=== PATIENT | male | born 1960 | race Caucasian/White ===

== ENCOUNTER 2021-08-03 21:45 | Inpatient (IN) | payer OTHER ==
[~2021-08-03] VITALS: Ht 162.6 cm; Wt 111.1 kg
[2021-08-03 21:50] VITALS: BP 146/89
--- NOTE | 2021-08-03 21:53 | NUR ---
TO LOBBY A/W BED AMBULATORY
[2021-08-03] MEDS ORDERED: ASPIRIN 325 MG TAB PO ONE (22:45)
[2021-08-03] MEDS ORDERED: NITROGLYCERIN 0.4 MG TAB SL ONE (22:45)
--- NOTE | 2021-08-03 22:50 | NUR ---
MEDICATED PER ERMDS ORDER, TOLERATED WELL.
[2021-08-03 23:11] LABS: BASOPHILS # (AUTO) 0.1 K/uL (0.00-0.22); BASOPHILS % (AUTO) 0.7 % (0.0-2.0); EOSINOPHILS # (AUTO) 0.1 K/uL (0-0.4); HEMATOCRIT 36.7 % (36-52); HEMOGLOBIN 12.3 g/dL (12.0-18.0); LYMPHOCYTES # (AUTO) 2.3 K/uL (2.0-11.5); LYMPHOCYTES % (AUTO) 23.9 % (20.5-51.1); MEAN CORPUSCULAR HEMOGLOBIN 29 pg (27-31); MEAN CORPUSCULAR HGB CONC 34 g/dL (33-37); MONOCYTES # (AUTO) 0.7 K/uL (0.8-1.0); NEUTROPHILS # (AUTO) 6.5 K/uL (1.8-7.7); NEUTROPHILS % (AUTO) 67.4 % (42.2-75.2); PLATELET COUNT (AUTO) 249 K/uL (140-450); RED BLOOD CELL COUNT(AUTO) 4.27 MIL/uL (4.20-6.10); RED CELL DISTRIBUTION WIDTH 15.3 % (11.6-13.7); WHITE BLOOD COUNT (AUTO) 9.7 K/uL (4.8-10.8)
[2021-08-03 23:26] LABS: ALBUMIN 3.1 g/dL (3.4-5.0); ANION GAP 9.6 (8-16); CARBON DIOXIDE 30.1 mmol/L (21-32); CREATININE 0.9 mg/dL (0.6-1.3); POTASSIUM 3.7 mmol/L (3.5-5.1); TOTAL BILIRUBIN 0.2 mg/dL (0.0-1.0)
--- NOTE | 2021-08-04 07:26 | NUR ---
Pt report given to Zuly SALGADO. Transfer of care at this time.
--- NOTE | 2021-08-04 07:36 | NUR ---
REPORT RECEIVED FROM DAMIAN GOOD. TRANSFER OF CARE RECEIVED
[2021-08-04] MEDS ORDERED: ZOLPIDEM 5 MG TAB PO PRN (08:20)
[2021-08-04] MEDS ORDERED: POTASSIUM CHLORIDE 10 MEQ TABER PO PRN (08:20)
[2021-08-04] MEDS: NACL 0.9% 1,000 ML IV SCH ×2 (08:20→18:32)
[2021-08-04] MEDS ORDERED: MORPHINE SULFATE 2 MG/ML SYR IVP PRN (08:20)
[2021-08-04] MEDS ORDERED: HYDROcodone/APAP 5/325 MG 1 TAB TAB PO PRN (08:20)
[2021-08-04] MEDS ORDERED: SODIUM PHOS / POTASSIUM PHOS 1 PKT PDR PO PRN (08:20)
[2021-08-04] MEDS ORDERED: DOCUSATE SODIUM 100 MG GELCAP PO PRN (08:20)
[2021-08-04] MEDS ORDERED: ONDANSETRON 4 MG/2 ML VIAL IVP PRN (08:20)
[2021-08-04] MEDS ORDERED: LORazepam 2 MG/ML VIAL IM/IVP PRN (08:20)
[2021-08-04] MEDS ORDERED: MAG SULF 2000 MG/WATER PREMIX 50 ML IV PRN (08:20)
--- NOTE | 2021-08-04 08:20 | NUR ---
RECEIVED REPORT FROM ED NURSE. PT IS ON THEIR WAY TO THE UNIT.
--- NOTE | 2021-08-04 08:30 | NUR ---
PT ON UNIT. PT HAS LAC 20G, IV IS PATENT AND INTACT. PT IS AMBULATORY ABLE TO MOVE FROM ED GURNEY TO [facility] INDEPENDENTLY. GAIT IS STEADY. PT DENIES PAIN AT THIS TIME. PT ON RA WITH NORMAL UNLABORED BREATHING. SKIN IS WARM, DRY, A ND INTACT. WILL CONTINUE TO MONITOR.
--- NOTE | 2021-08-04 08:30 | NUR ---
Patient will be admitted to care of DR. MERCADO. Admited to TELE. Will go to room 106A. Belongings list completed. Report to DAMIAN NGUYEN.
--- NOTE | 2021-08-04 08:35 | NUR ---
PATIENT HAS BEEN SCREENED AND CATEGORIZED LOW NUTRITION RISK. PATIENT WILL BE SEEN WITHIN 7 DAYS OF ADMISSION. 08/10/[address]
[2021-08-04 09:04] LABS: ALBUMIN 3.1 g/dL (3.4-5.0); ANION GAP 9.9 (8-16); CARBON DIOXIDE 30.3 mmol/L (21-32); CREATININE 0.9 mg/dL (0.6-1.3); POTASSIUM 4.2 mmol/L (3.5-5.1); TOTAL BILIRUBIN 0.2 mg/dL (0.0-1.0)
[2021-08-04 09:18] LABS: PHOSPHORUS 4.2 mg/dL (2.5-4.9)
[2021-08-04 09:19] LABS: CHOL/HDL RATIO 5.3 (1-4.5); FREE T4 (FREE THYROXINE) 0.78 ng/dL (0.76-1.46); THYROID STIMULATING HORMONE 4.02 uIU/mL (0.34-3.74)
--- NOTE | 2021-08-04 10:20 | NUR ---
PT CONDITION IS STABLE. PT IS ON THE PHONE WITH FAMILY, DENIES PAIN AT THIS TIME. WILL CONTINUE TO MONITOR.
--- NOTE | 2021-08-04 12:00 | NUR ---
PT CONDITION IS STABLE. PT IS AWAKE AND CURRENTLY WATCHING TELEVISION. PT IS ON IVF PER MD ORDER. IV IS PATENT AND INTACT. WILL CONTINUE TO MONITOR.
[2021-08-04] MEDS: FUROSEMIDE 40 MG TAB PO SCH ×2 (13:26→19:11)
[2021-08-04 14:00] VITALS: BP 166/102
[2021-08-04] MEDS ORDERED: REGADENOSON 0.4 MG/5 ML SYR IV SCH (14:15)
--- NOTE | 2021-08-04 14:30 | NUR ---
PT CONDITION IS STABLE. PT IS CURRENTLY SLEEPING. PT DOES NOT APPEAR TO BE IN PAIN OR DISTRESS. WILL CONTINUE TO MONITOR.
[2021-08-04 16:00] VITALS: BP 145/84
--- NOTE | 2021-08-04 16:15 | NUR ---
PT IS AWAKE AND ON THE PHONE WITH FAMILY. PT DOES NOT APPEAR TO BE IN PAIN OR DISTRESS. WILL CONTINUE TO MONITOR.
--- NOTE | 2021-08-04 18:45 | NUR ---
PT CONDITION IS STABLE. PT DENIES PAIN AT THIS TIME. BREATHING IS NORMAL AND UNLABORED. IVF IS RUNNING PER MD ORDER. SKIN IS WARM, DRY, AND INTACT.
--- NOTE | 2021-08-04 19:15 | NUR ---
GAVE CHANGE OF SHIFT REPORT TO NIGHT NURSE AT BEDSIDE FOR CONTINUITY OF CARE. DISCUSSED POC. PT CONDITION IS STABLE.
--- NOTE | 2021-08-04 19:30 | NUR ---
RECEIVED REPORT AT BEDSIDE.PT IS AWAKE,ALERT AND ORIENTED.RESP.UNLABORED IN RA.LUNGS CLEAR.TELE IS ON AND SHOWING SR W/INVERTED T.IVF INFUSING WELL.CALL LIGHT IN REACH.NO C/O PAIN AT THIS TIME.WILL CONT.MONITORING.
[2021-08-04 20:00] VITALS: BP 127/81
[2021-08-05] VITALS: BP 155/87
--- NOTE | 2021-08-05 | NUR ---
VS STABLE.HR IS SR.NO DISTRESS NOTED NOW.VCALL LIGHT WITHIN REACH.
[2021-08-05] MEDS: ACETAMINOPHEN 325 MG TAB PO PRN (03:22)
[2021-08-05 04:00] VITALS: BP 135/80
[2021-08-05] MEDS: NACL 0.9% 1,000 ML IV SCH ×2 (04:20→14:51)
--- NOTE | 2021-08-05 04:22 | NUR ---
HAD C/O ERNST.TYLENOL PO GIVEN EARLIER.NO C/O PAIN NOW.HE IS NPO FOR LEXICAN STRESS TEST THIS AM.HR IS SR.VS STABLE.
--- NOTE | 2021-08-05 06:19 | NUR ---
SLEEPING.NO DISTRESS NOTED AT PRESENT TIME.
[2021-08-05] MEDS ORDERED: REGADENOSON 0.4 MG/5 ML SYR IV SCH ×2 (07:00→08:50)
--- NOTE | 2021-08-05 07:20 | NUR ---
RECEIVED CHANGE OF SHIFT REPORT FROM NIGHT NURSE AT BEDSIDE FOR CONTINUITY OF CARE. PT CONDITION IS STABLE WITH IVF RUNNING PER MD ORDER. PT DENIES PAIN OR DISCOMFORT AT THIS TIME. SKIN IS WARM, DRY, AND INTACT. WILL CONTINUE TO MONITOR.
[2021-08-05 07:37] LABS: BASOPHILS # (AUTO) 0.1 K/uL (0.00-0.22); BASOPHILS % (AUTO) 0.6 % (0.0-2.0); EOSINOPHILS # (AUTO) 0.2 K/uL (0-0.4); EOSINOPHILS % (AUTO) 2.2 % (0.0-4.0); HEMATOCRIT 36.8 % (36-52); HEMOGLOBIN 12.5 g/dL (12.0-18.0); LYMPHOCYTES % (AUTO) 30.7 % (20.5-51.1); MEAN CORPUSCULAR HEMOGLOBIN 29 pg (27-31); MEAN CORPUSCULAR HGB CONC 34 g/dL (33-37); MEAN CORPUSCULAR VOLUME 85.9 fL (80-94); MONOCYTES # (AUTO) 0.7 K/uL (0.8-1.0); MONOCYTES % (AUTO) 7.1 % (1.7-9.3); NEUTROPHILS # (AUTO) 5.8 K/uL (1.8-7.7); NEUTROPHILS % (AUTO) 59.4 % (42.2-75.2); PLATELET COUNT (AUTO) 237 K/uL (140-450); RED BLOOD CELL COUNT(AUTO) 4.28 MIL/uL (4.20-6.10); RED CELL DISTRIBUTION WIDTH 15.8 % (11.6-13.7); WHITE BLOOD COUNT (AUTO) 9.7 K/uL (4.8-10.8)
--- NOTE | 2021-08-05 07:53 | NUR ---
RADIOLOGY AT BEDSIDE FOR IV MED INJECTION TO PREPARE FOR LEXISCAN.
[2021-08-05 08:00] VITALS: BP 141/80
[2021-08-05 08:36] LABS: ALBUMIN 3.2 g/dL (3.4-5.0); CARBON DIOXIDE 32.6 mmol/L (21-32); CREATININE 1.1 mg/dL (0.6-1.3); POTASSIUM 3.6 mmol/L (3.5-5.1); TOTAL BILIRUBIN 0.4 mg/dL (0.0-1.0)
[2021-08-05] MEDS: ATORVASTATIN 20 MG TAB PO SCH (08:42)
[2021-08-05] MEDS: FUROSEMIDE 40 MG TAB PO SCH (08:42)
--- NOTE | 2021-08-05 08:50 | NUR ---
RADIOLOGY PICKED UP PATIENT FOR STRESS TEST. PT IS OFF THE UNIT.
[2021-08-05 09:16] LABS: APPEARANCE,URINE CLEAR (CLEAR); BILIRUBIN,URINE NEGATIVE (NEGATIVE); BLOOD, URINE TRACE-I (NEGATIVE); COLOR,URINE YELLOW (YELLOW); LEUKOCYTE ESTERASE ,URINE NEGATIVE (NEGATIVE); NITRITE, URINE NEGATIVE (NEGATIVE); UGLUCOSE NEGATIVE (NEGATIVE)
[2021-08-05 09:41] LABS: BARBITURATE, URINE NEGATIVE ng/ml (NEG <=200); BENZODIAZEPINE, URINE NEGATIVE ng/mL (NEG <=200); CANNABINOID, URINE NEGATIVE ng/mL (NEG <=50); COCAINE, URINE NEGATIVE ng/mL (NEG <=300); PHENCYCLIDINE SCREEN,URINE NEGATIVE ng/mL (NEG <=25)
[2021-08-05 09:42] LABS: OPIATE, URINE NEGATIVE ng/mL (NEG <=2000)
[2021-08-05 09:54] LABS: RBC,URINE 0-5 /HPF (0-5); WBC,URINE 0-5 /HPF (0-5)
--- NOTE | 2021-08-05 09:58 | NUR ---
RECEIVED CALL FROM [facility] (RADIOGRAPHY TECH). PT FINISHED STRESS TEST PORTION OF TEST. REPORTS PT BP IS HIGH DR. GOODSON WILL INPUT ORDERS. REQUEST FOR ME TO GO TO TREADMILL ROOM.
[2021-08-05] MEDS ORDERED: hydrALAZINE 20 MG/ML VIAL IVP ONE (10:00)
[2021-08-05] MEDS ORDERED: hydrALAZINE 20 MG/ML VIAL IVP PRN (10:05)
--- NOTE | 2021-08-05 10:20 | NUR ---
ADMINISTERED HYDRALAZINE [address] PER [address] GOODSON ORDER FOR HIGH BLOOD PRESSURE 171/99 DURING LEXISCAN. WILL CONTINUE TO WORK WITH RADIOLOGY [facility] FOR PT SAFETY.
[2021-08-05] MEDS: ECOTRIN 81 MG TABEC PO SCH (10:25)
--- NOTE | 2021-08-05 11:16 | NUR ---
PT TRANSPORTED BY [facility] FLEXOGRAPHIC PRINTING PRESS OPERATOR FROM [facility] VIA WHEELCHAIR. PT CONDITION IS STABLE AND BACK ON TELE MONITORING WILL CHECK BP.
[2021-08-05 11:17] LABS: MAGNESIUM 2.1 mg/dL (1.8-2.4)
[2021-08-05 12:00] VITALS: BP 162/87
--- NOTE | 2021-08-05 13:17 | NUR ---
PT CONDITION IS STABLE. PT HAS AT BEDSIDE. PT DENIES ANY PAIN AT THIS TIME. WILL CONTINUE TO REASSESS PT.
--- NOTE | 2021-08-05 13:35 | NUR ---
LIQUOR BRIDGE OPERATOR HELPER AT BEDSIDE PERFORMING ECHOCARDIOGRAPH. PT CONDITION IS STABLE.
--- NOTE | 2021-08-05 14:37 | NUR ---
DC PLANNING: SPOKE WITH DR GOODSON VENDETTE RECOMMENDED PT NEEDS CARDIAC CATHETERIZATION IF IT'S POSSIBLE WILLING TO DO IT AT [facility]. FAXED TO [facility] AND [facility] SPOKE WITH RUPERT GERMAN AT [facility] STATED [facility] IS RESPONSIBLE FOR PROCEDURE. CALLED [facility] AND LEFT A MESSAGE FOR CM . Addendum: 08/05/21 at 1612 by Jemma Disla RN DC PLANNING: SPOKE WITH YOGI AT [facility] ,PROVIDE ME DIFFERENT FAX NUMBER AND ONCE CM REVIEW IT WILL CALL BACK. CALLED MOBILE ARTIST'S REPRESENTATIVE SPOKE WITH MATI STATED WILL REVIEW THE CASE. DC PLAN AWAITING FOR AUTHORIZATION FROM [facility]. CM TO FOLLOW Addendum: 08/07/21 at 1235 by Jemma Disla RN DC PLANNING: RECEIVED A CALL FROM [facility] [phone] SPOKE WITH OMKAR BAIG PT IS ACCEPTED AT [facility] [place] [facility] THE ADDRESS [id number] [place] [id number] # TO GIVE REPORT [phone] . ORDERED RAPID COVID TEST AND NOTIFIED PATIENT AND PT AGREED. NOTIFIED DR GOODSON AND DR RUIZ AND ADITYA CHARGE NURSE AND OMKAR WILL CALL FOR ETA. CM TO FOLLOW Addendum: 08/07/21 at 1415 by Jemma Disla RN DC PLANNING: RECEIVED A CALL FROM OMKAR PROVIDE THE ROOM NUMBER TO THE UNIT PT IS GOING TO ROOM 201 TELE FLOOR # TO GIVE REPORT [phone] FAXED THE PCS FORM TO [facility] [employer] MEDIA PROFESSOR TIME WITH IN 90 MIN. NOTIFIED ADITYA CHARGE NURSE.
--- NOTE | 2021-08-05 15:00 | NUR ---
PT CONDITION IS STABLE. PT DENIES PAIN OR DISCOMFORT AT THIS TIME. SKIN IS WARM, DRY AND INTACT. IVF RUNNING PER MD ORDER. IV IS PATENT AND INTACT VIA SALINE FLUSH. BREATHING IS NORMAL AND UNLABORED. WILL CONTINUE TO MONITOR.
[2021-08-05 16:00] VITALS: BP 137/70
--- NOTE | 2021-08-05 17:25 | NUR ---
NE CONDITION IS STABLE. PT HAS DAUGHTER AT BEDSIDE. PT DENIES ANY PAIN OR DISCOMFORT. WILL CONTINUE TO MONITOR.
--- NOTE | 2021-08-05 19:25 | NUR ---
GAVE CHANGE OF SHIFT REPORT TO NIGHT NURSE AT BEDSIDE FOR CONTINUITY OF CARE. POC DISCUSSED. PT CONDITION IS STABLE.
--- NOTE | 2021-08-05 19:40 | NUR ---
AWAKE,ALERT AND ORIENTED.RESP.UNLABORED IN RA.IVF INFUSING WELL.TELE IS ON AND SHOWING SR.CALL LIGHT IN REACH.JOY PAIN NOW.WILL CONT.MONITORING.
[2021-08-05 20:00] VITALS: BP 147/72
[2021-08-05] MEDS: carvediloL 6.25 MG TAB PO SCH (21:36)
[2021-08-06] VITALS: BP 135/75
--- NOTE | 2021-08-06 | NUR ---
SLEEPING.VS STABLE.IVF IS IN PROGRESS.
[2021-08-06] MEDS: NACL 0.9% 1,000 ML IV SCH ×3 (03:13→20:20)
[2021-08-06 04:00] VITALS: BP 133/78
--- NOTE | 2021-08-06 04:00 | NUR ---
SLEEPING.HR IS SR.NO C/O PAIN AT THIS TIME.
--- NOTE | 2021-08-06 07:36 | NUR ---
REPORT GIVEN TO KEZIA RN.PT'S CONDITION IS STABLE.
[2021-08-06 07:40] LABS: BASOPHILS # (AUTO) 0.1 K/uL (0.00-0.22); BASOPHILS % (AUTO) 0.9 % (0.0-2.0); EOSINOPHILS # (AUTO) 0.2 K/uL (0-0.4); EOSINOPHILS % (AUTO) 2.1 % (0.0-4.0); HEMATOCRIT 37.7 % (36-52); HEMOGLOBIN 12.7 g/dL (12.0-18.0); LYMPHOCYTES # (AUTO) 2.2 K/uL (2.0-11.5); LYMPHOCYTES % (AUTO) 26.4 % (20.5-51.1); MEAN CORPUSCULAR HEMOGLOBIN 29 pg (27-31); MEAN CORPUSCULAR HGB CONC 34 g/dL (33-37); MEAN CORPUSCULAR VOLUME 86.5 fL (80-94); MONOCYTES # (AUTO) 0.7 K/uL (0.8-1.0); NEUTROPHILS # (AUTO) 5.1 K/uL (1.8-7.7); NEUTROPHILS % (AUTO) 62.6 % (42.2-75.2); PLATELET COUNT (AUTO) 249 K/uL (140-450); RED BLOOD CELL COUNT(AUTO) 4.36 MIL/uL (4.20-6.10); RED CELL DISTRIBUTION WIDTH 15.2 % (11.6-13.7); WHITE BLOOD COUNT (AUTO) 8.2 K/uL (4.8-10.8)
[2021-08-06 08:00] VITALS: BP 136/72
--- NOTE | 2021-08-06 08:00 | NUR ---
RECEIVED REPORT FROM RECEIVABLE EXECUTIVE FOR CONTINUITY OF CARE. PATIENT ALERT AWAKE ORIENTED X4, NOT IN DISTRESS NOTED. DENIES CHEST PAIN. NOT IN DISTRESS NOTED. ON MONITOR SHOWS SR. WITH IVF ON GOING AND INFUSING WELL. CALL LIGHT WITHIN REACH. NEEDS ATTENDED. WILL CONTINUE TO MONITOR.
[2021-08-06 08:01] LABS: ANION GAP 8.7 (8-16); CARBON DIOXIDE 32.7 mmol/L (21-32); CREATININE 1.1 mg/dL (0.6-1.3); POTASSIUM 3.4 mmol/L (3.5-5.1); TOTAL BILIRUBIN 0.5 mg/dL (0.0-1.0)
[2021-08-06] MEDS: ATORVASTATIN 20 MG TAB PO SCH (08:44)
[2021-08-06] MEDS: ECOTRIN 81 MG TABEC PO SCH (08:45)
[2021-08-06] MEDS: carvediloL 6.25 MG TAB PO SCH ×2 (08:45→22:45)
--- NOTE | 2021-08-06 09:00 | NUR ---
DUE MEDICATIONS GIVEN, SEEN BY DR. RUIZ TODAY AND DISCUSSED PLAN OF CARE. WILL CONTINUE TO MONITOR.
[2021-08-06 12:00] VITALS: BP 107/76
[2021-08-06 16:00] VITALS: BP 110/56
--- NOTE | 2021-08-06 18:35 | NUR ---
PATIENT RESTING IN BED, AT BEDSIDE. DENIES CHEST PAIN. IN STABLE CONDITION. WILL ENDORSE TO THE NEXT SHIFT.
--- NOTE | 2021-08-06 19:29 | NUR ---
RECEIVED REPORT FORM ADITYA SALGADO DAYSHIFT NURSE AT BEDSIDE FOR CONTINUITY OF CARE, PT IN STABLE CONDITION.
--- NOTE | 2021-08-06 19:30 | NUR ---
PT SITTING UP IN BED AOX4 ON ROOM AIR, NO C/O OF PAIN OR DISTRESS NOTED. HE IS RUNNING NORMAL SALINE AT 100MLS/HR VIA 20 G LEFT AC. ALL [place] PRECAUTIONS IN PLACE.
[2021-08-06 20:00] VITALS: BP 136/72
--- NOTE | 2021-08-06 20:00 | NUR ---
PT SITTING UP IN BED AOX4 V/S FOLLOWS: T 97.5 P 77 R 20 B/P 136/72 02 97%. IV FLUIDS RUNNING ORDERED. ALL UN[place] F[place]S PRECAUTIONS IN PLACE.
--- NOTE | 2021-08-06 21:30 | NUR ---
PT GIVEN ORDERED COREG. EDUCATION REGARDING MEDICATION AND ITS PURPOSES PROVIDED AT BEDSIDE, PT VERBALIZED UNDERSTANDING.
[2021-08-06] MEDS: ACETAMINOPHEN 325 MG TAB PO PRN (22:49)
[2021-08-07] VITALS: BP 130/70
--- NOTE | 2021-08-07 | NUR ---
PT SITTING UP IN BED RESTING AND WATCHING TV. V/S FOLLOWS: T 97.0 P 70 R 20 B/P 130/70 02 98%. NO S/S OF PAIN OR DISTRESS NOTED. ALL UN[place] F[place]S PRECAUTIONS IN PLACE.
--- NOTE | 2021-08-07 01:30 | NUR ---
ROUNDS DONE, PT IN BED SLEEPING. ALL UNIVERSAL F[place]S PRECAUTIONS IN PLACE.
[2021-08-07 04:00] VITALS: BP 147/85
--- NOTE | 2021-08-07 05:00 | NUR ---
PT V/S FOLLOWS: T 97.7 P 60 R 20 B/P 147/85 02 98% ON ROOM AIR. NEW IV 22G ON LEFT F/A. FLUIDS RUNNING ORDERED. ALL UNIVERSAL F[place]S PRECAUTIONS IN PLACE.
[2021-08-07] MEDS: NACL 0.9% 1,000 ML IV SCH (06:20)
[2021-08-07 07:26] LABS: BASOPHILS % (AUTO) 0.6 % (0.0-2.0); EOSINOPHILS # (AUTO) 0.2 K/uL (0-0.4); EOSINOPHILS % (AUTO) 2.9 % (0.0-4.0); HEMATOCRIT 36.3 % (36-52); HEMOGLOBIN 12.3 g/dL (12.0-18.0); LYMPHOCYTES # (AUTO) 2.4 K/uL (2.0-11.5); LYMPHOCYTES % (AUTO) 28.9 % (20.5-51.1); MEAN CORPUSCULAR HEMOGLOBIN 29 pg (27-31); MEAN CORPUSCULAR HGB CONC 34 g/dL (33-37); MEAN CORPUSCULAR VOLUME 86.6 fL (80-94); MONOCYTES # (AUTO) 0.5 K/uL (0.8-1.0); MONOCYTES % (AUTO) 6.4 % (1.7-9.3); NEUTROPHILS # (AUTO) 5.2 K/uL (1.8-7.7); NEUTROPHILS % (AUTO) 61.2 % (42.2-75.2); PLATELET COUNT (AUTO) 245 K/uL (140-450); RED BLOOD CELL COUNT(AUTO) 4.19 MIL/uL (4.20-6.10); RED CELL DISTRIBUTION WIDTH 15.4 % (11.6-13.7); WHITE BLOOD COUNT (AUTO) 8.5 K/uL (4.8-10.8)
[2021-08-07 08:00] VITALS: BP 159/84
--- NOTE | 2021-08-07 08:00 | NUR ---
RECEIVED REPORT FROM CLINICAL DATA ANALYST FOR CONTINUITY OF CARE. NOT IN DISTRESS NOTED. PATIENT ALERT AWAKE ORIENTED X4. DENIES CHEST PAIN. WITH IVF ON GOING AND INFUSING WELL. ON HEART MONITOR SHOWS SR. NEEDS ATTENDED. WILL CONTINUE TO MONITOR.
[2021-08-07 08:06] LABS: CARBON DIOXIDE 29.4 mmol/L (21-32); POTASSIUM 3.4 mmol/L (3.5-5.1)
[2021-08-07 08:07] LABS: MAGNESIUM 2.1 mg/dL (1.8-2.4); TOTAL BILIRUBIN 0.4 mg/dL (0.0-1.0)
[2021-08-07] MEDS: ECOTRIN 81 MG TABEC PO SCH (08:43)
[2021-08-07] MEDS: carvediloL 6.25 MG TAB PO SCH (08:43)
[2021-08-07] MEDS: ATORVASTATIN 20 MG TAB PO SCH (08:43)
--- NOTE | 2021-08-07 11:14 | NUR ---
PATIENT RESTING IN BED. WILL CONTINUE TO MONITOR.
[2021-08-07 12:00] VITALS: BP 149/73
--- NOTE | 2021-08-07 14:18 | NUR ---
WAX CUTTER YOUSUF CALLED THAT PATIENT WILL GO TO [facility] IN [place] FOR CARDIAC CATH. NOTIFIED PATIENT.
--- NOTE | 2021-08-07 14:29 | NUR ---
REPORT GIVEN TO CRYSTAL SALGADO. WILL WAIT FOR SENIOR TAX SPECIALIST.
[2021-08-07 14:31] VITALS: BP 149/73
[2021-08-07 16:00] VITALS: BP 149/85
--- NOTE | 2021-08-07 16:55 | NUR ---
[facility] HERE TO BILLET HEATER OPERATOR PATIENT, REPORT GIVEN AT BEDSIDE. VITALS STABLE. IN STABLE CONDITION.
== END 2021-08-07 17:10 | disposition short-term general hospital (02) | DRG 281 ==
LOC: MED 21:45 → MTU 08-04 06:01
PROVIDERS: ADMIT Family Medicine; ATTEND Family Medicine
DX: I21.4 Non-ST elevation (NSTEMI) myocardial infarction (principal); E44.1 Mild protein-calorie malnutrition; Z68.41 Body mass index [BMI] 40.0-44.9, adult; I20.0 Unstable angina; I45.10 Unspecified right bundle-branch block; E66.01 Morbid (severe) obesity due to excess calories; I35.0 Nonrheumatic aortic (valve) stenosis; I10 Essential (primary) hypertension; Z20.822 Contact with and (suspected) exposure to COVID-19; E78.5 Hyperlipidemia, unspecified; Z86.16 Personal history of COVID-19; Z87.01 Personal history of pneumonia (recurrent)
CPT/HCPCS: 36415; 71045; 80053; 80305; 81001; 82150; 83036; 83690; 83735; 83880; 84100; 84439; 84443; 84484; 85025; 85610; 85730; 87081; 87086; 93005; 99285; A9500; A9502; J0360; J2785